=== PATIENT | male | born 1995 ===

== ENCOUNTER 2024-12-23 11:28 | Inpatient (IN) | payer MEDICAID ==
[~2024-12-23] VITALS: Ht 170.2 cm; Wt 90.0 kg
[~2024-12-23 11:28] MED LIST: AMLO-257 PO; METO50 PO; POTA-206 PO
[2024-12-23] MEDS ORDERED: AMLO-258 PO (11:48)
[2024-12-23 12:16] LABS: PLATELET COUNT (AUTO) 215 K/uL (150-450); RED BLOOD CELL COUNT(AUTO) 5.54 MIL/uL (4.50-5.90); RED CELL DISTRIBUTION WIDTH 13.0 % (11.5-14.5); WHITE BLOOD COUNT (AUTO) 7.8 K/uL (4.5-11.0)
[2024-12-23 12:20] LABS: CALCIUM, TOTAL 8.3 mg/dL (8.8-10.5); CREATININE 1.66 mg/dL (0.60-1.30); GLOMERULAR FILTR. RATE CALC 50 mL/min (>60); GLUCOSE,RANDOM 112 mg/dL (70-110); SODIUM SERUM 137 mmol/L (136-145); UREA NITROGEN, BLOOD 19 mg/dL (7-18)
[2024-12-23 12:22] LABS: ASPARTATE AMINOTRANSFERASE 28.0 U/L (15-37); TOTAL PROTEIN, SERUM 7.9 g/dL (6.4-8.2)
[2024-12-23 12:29] LABS: TROPONIN I-HIGH SENSITIVITY 33 ng/L (<76)
[2024-12-23] MEDS ORDERED: MAGNESIUM HYDROXIDE SUSPENSION 30 ML UDCUP PO PRN (13:30)
[2024-12-23] MEDS ORDERED: ACETAMINOPHEN 325 MG TABLET PO PRN (13:30)
[2024-12-23] MEDS ORDERED: ONDANSETRON HCL 4 MG/2 ML VIAL IVP PRN (13:30)
[2024-12-23] MEDS ORDERED: OxyCODONE HCL/ACETAMINOPHEN 5-325 MG TABLET PO PRN (13:30)
[2024-12-23] MEDS: POTASSIUM CHLORIDE 20 MEQ ER TABLET PO ONE (14:57)
[2024-12-23] MEDS: ASPIRIN 81 MG CHEWABLE TABLET PO ONE (14:57)
[2024-12-23] MEDS: ATORVASTATIN CALCIUM 40 MG TABLET PO SCH (15:19)
[2024-12-23 16:27] LABS: APPEARANCE,URINE CLEAR (CLEAR); GLUCOSE, URINE (UA) NEGATIVE (NEGATIVE); LEUKOCYTE ESTERASE ,URINE NEGATIVE (NEGATIVE); NITRATE,URINE NEGATIVE (NEGATIVE); OCCULT BLOOD,URINE NEGATIVE (NEGATIVE); PH,URINE DRUG SCREEN 7.0 (5.0-8.0); SPECIFIC GRAVITIY, URINE 1.013 (1.003-1.030)
[2024-12-23 16:34] LABS: ALCOHOL, URINE DRUG SCREEN NEGATIVE (NEGATIVE); AMPHET/METH SCREEN,URINE NEGATIVE (NEGATIVE); BARBITURATE SCREEN, URINE NEGATIVE (NEGATIVE); CANNABINOID SCREEN,URINE NEGATIVE (NEGATIVE); COCAINE SCREEN,URINE NEGATIVE (NEGATIVE); METHADONE SCREEN, URINE NEGATIVE (NEGATIVE)
[2024-12-23 16:39] LABS: SULFOSALICYLIC ACID,URINE 2+ (Negative)
[2024-12-23 16:41] LABS: SQUAMOUS EPITHELIAL CELL,UR Rare /LPF (None Seen)
[2024-12-23] MEDS: DOCUSATE SODIUM 100 MG CAPSULE PO SCH (21:00)
[2024-12-23] MEDS: CHLORHEXIDINE GLUCONATE 2% TOWELETTE [2'S/6'S] TP SCH (21:36)
[2024-12-24] MEDS: FAMOTIDINE 20 MG TABLET PO SCH (09:27)
[2024-12-24] MEDS: ASPIRIN 81 MG CHEWABLE TABLET PO SCH (09:28)
[2024-12-24] MEDS: POTASSIUM CHLORIDE 20 MEQ ER TABLET PO ONE (09:28)
[2024-12-25 05:32] LABS: PLATELET COUNT (AUTO) 221 K/uL (150-450); RED BLOOD CELL COUNT(AUTO) 5.00 MIL/uL (4.50-5.90); RED CELL DISTRIBUTION WIDTH 13.0 % (11.5-14.5); WHITE BLOOD COUNT (AUTO) 8.1 K/uL (4.5-11.0)
[2024-12-25 05:35] LABS: CALCIUM, TOTAL 7.9 mg/dL (8.8-10.5); CREATININE 1.52 mg/dL (0.60-1.30); GLOMERULAR FILTR. RATE CALC 55.0 mL/min (>60); GLUCOSE,RANDOM 105.0 mg/dL (70-110); SODIUM SERUM 140.0 mmol/L (136-145); UREA NITROGEN, BLOOD 21.0 mg/dL (7-18)
[2024-12-25] MEDS ORDERED: POTASSIUM CHLORIDE 10% 40 MEQ/30 ML LIQUID UDCUP PO ONE (06:45)
[2024-12-25] MEDS: POTASSIUM CHLORIDE 20 MEQ ER TABLET PO ONE ×2 (07:04→13:30)
[2024-12-25] MEDS: METOPROLOL TARTRATE 50 MG TABLET PO SCH (10:21)
[2024-12-25 12:00] VITALS: BP 152/81; PULSE 85; PULSE 87; RESP 28; TEMP 97.6
[2024-12-25 16:00] VITALS: BP 157/77; PULSE 91; RESP 23; TEMP 97.5
[2024-12-25 20:00] VITALS: BP 161/91; PULSE 90; RESP 20; TEMP 98.5
[2024-12-26] VITALS: BP 158/99; PULSE 79; RESP 20; TEMP 98.4
[2024-12-26 04:00] VITALS: BP 157/103; PULSE 73; RESP 16; TEMP 98.3; O2SAT 100
[2024-12-26 06:30] LABS: CALCIUM, TOTAL 8.5 mg/dL (8.8-10.5); CREATININE 1.41 mg/dL (0.60-1.30); GLOMERULAR FILTR. RATE CALC 60.0 mL/min (>60); GLUCOSE,RANDOM 83.0 mg/dL (70-110); SODIUM SERUM 139.0 mmol/L (136-145); UREA NITROGEN, BLOOD 17.0 mg/dL (7-18)
[2024-12-26 07:04] LABS: PLATELET COUNT (AUTO) 295 K/uL (150-450); RED BLOOD CELL COUNT(AUTO) 5.03 MIL/uL (4.50-5.90); RED CELL DISTRIBUTION WIDTH 13.2 % (11.5-14.5); WHITE BLOOD COUNT (AUTO) 7.3 K/uL (4.5-11.0)
[2024-12-26 08:00] VITALS: BP 192/132; PULSE 80; RESP 18; TEMP 98.5; O2SAT 99
[2024-12-26 08:57] LABS: CHOL/HDL RATIO 4.6 (4.2-7.3); LDL CHOL (CALC.) 61.0 mg/dL (0-130)
[2024-12-26] MEDS ORDERED: LOSARTAN POTASSIUM 25 MG TABLET PO SCH (09:00)
[2024-12-26] MEDS: LOSARTAN POTASSIUM 50 MG TABLET PO SCH (09:11)
[2024-12-26] MEDS: CLOPIDOGREL BISULFATE 75 MG TABLET PO SCH (09:11)
[2024-12-26 12:00] VITALS: BP 156/95; PULSE 68; PULSE 71; RESP 16; TEMP 98.7; O2SAT 98
[2024-12-26] MEDS: LOSARTAN POTASSIUM 50 MG TABLET PO ONE (13:25)
[2024-12-26 16:00] VITALS: BP 142/109; PULSE 74; PULSE 77; RESP 16; TEMP 98.5; O2SAT 98
[2024-12-26] MEDS ORDERED: CLOP75TA83 PO (17:30)
[2024-12-26] MEDS ORDERED: HYDR25TA84 PO (17:30)
[2024-12-26] MEDS ORDERED: LOSA-382 PO (17:30)
[2024-12-26] MEDS ORDERED: AMLO-258 PO (17:30)
[2024-12-26] MEDS ORDERED: ATOR40TA71 PO (17:30)
[2024-12-26] MEDS ORDERED: ASPI-1450 PO (17:30)
[2024-12-26] MEDS ORDERED: METO50 PO (17:30)
[2024-12-26] MEDS ORDERED: POTASSIUM CHLORIDE 10 MEQ ER TABLET PO ONE (17:30)
[2024-12-27] MEDS ORDERED: LOSARTAN POTASSIUM 50 MG TABLET PO SCH (09:00)
== END 2024-12-26 19:10 | disposition home or self-care (01) | DRG 45 ==
LOC: EMS 11:28 → EDH 13:25 → ICU 12-25 11:20
PROVIDERS: ADMIT Internal Medicine; ATTEND Internal Medicine
DX: I63.9 Cerebral infarction, unspecified (principal); I16.1 Hypertensive emergency; E87.6 Hypokalemia; I12.9 Hypertensive chronic kidney disease with stage 1 through stage 4 chronic kidney disease, or unspecified chronic kidney disease; G43.909 Migraine, unspecified, not intractable, without status migrainosus; N18.2 Chronic kidney disease, stage 2 (mild); N17.9 Acute kidney failure, unspecified; Z91.199 Patient's noncompliance with other medical treatment and regimen due to unspecified reason
CPT/HCPCS: 70450; 70551; 71045; 80048; 80061; 80076; 80307; 81001; 81002; 83735; 84132; 84484; 85025; 85610; 85730; 87081; 93005; 99291; J0360; J3490; J7050; 36415-L1; 36415-TC